=== PATIENT | female | born 1940 | race Caucasian/White ===

== ENCOUNTER 2022-05-22 17:43 | Inpatient (IN) | payer MEDICARE, OTHER ==
[~2022-05-22] VITALS: Ht 165.1 cm; Wt 84.8 kg
--- NOTE | 2022-05-22 18:29 | NUR ---
BIB [facility],SLIP/FALL IN HER KITCHEN,C/O RIGHT HIP PAIN. ESTABLISHED IV 20 G AT LEFT WRIST. BLOOD DRAWN AND SENT TO LAB.
[2022-05-22] MEDS ORDERED: ONDANSETRON 4 MG TAB.RAPDIS PO ONE (18:30)
--- NOTE | 2022-05-22 18:32 | NUR ---
X-RAY TECH AT BEDSIDE.
[2022-05-22] MEDS ORDERED: MORPHINE SULFATE INJ 4 MG/ML DISP.SYRIN ONE (18:36)
[2022-05-22] MEDS ORDERED: ONDANSETRON HCL/PF 4 MG/2 ML VIAL ONE (18:36)
[2022-05-22] MEDS: MORPHINE SULFATE INJ 2 MG/ML DISP.SYRIN IV ONE ×2 (19:00→19:25)
[2022-05-22] MEDS: ONDANSETRON HCL/PF - ER 4 MG/2 ML VIAL IV ONE ×2 (19:01→19:24)
--- NOTE | 2022-05-22 19:18 | NUR ---
[facility] [phone]
[2022-05-22 19:19] LABS: CALCIUM, SERUM 9.5 mg/dL (8.5-10.1); POTASSIUM 3.9 mmol/L (3.5-5.1)
--- NOTE | 2022-05-22 19:19 | NUR ---
COVID SWAB COLLECTED AND SENT TO LAB
--- NOTE | 2022-05-22 19:27 | NUR ---
RECEIVED REPORT FROM DELON GUERRERO. PATIENT CAME INITIALLY WITH CC OF SLIPPED AT HOME AND HAVE PAIN ON RIGHT HIP. PATIENT IS IN BED. AAOX4. NO PAIN AT THE MOMENT. PATIENT HAS IV ACCESS ON LEFT WRIST G20. WITH O2 INH AT 2LPM. ATTACHED TO MONITOR. VITALS CHECKED.
[2022-05-22 20:31] LABS: EOSINOPHILS % (AUTO) 0.3 % (0.0-6.0); HEMATOCRIT 39 % (33-45); HEMOGLOBIN 12.5 g/dL (11.5-14.8); LYMPHOCYTES # (AUTO) 1.9 K/uL (0.8-4.8); LYMPHOCYTES % (AUTO) 15.5 % (20.0-44.0); MEAN CORPUSCULAR HGB CONC 32 g/dl (31.0-36.0); MEAN CORPUSCULAR VOLUME 82 fL (82-100); MONOCYTES # (AUTO) 0.5 K/uL (0.1-1.30); MONOCYTES % (AUTO) 4.1 % (2.0-12.0); NEUTROPHILS # (AUTO) 9.6 K/uL (1.8-8.9); NEUTROPHILS % (AUTO) 80.1 % (43.0-81.0); PLATELET COUNT (AUTO) 281 K/uL (150-450); RED BLOOD CELL COUNT(AUTO) 4.68 MIL/uL (4.0-5.2)
--- NOTE | 2022-05-22 20:35 | NUR ---
PATIENT WANTS TO PASS URINE BUT UNABLE TO LIFT HIPS DUE TO PAIN ON RIGHT HIP. INSERTED IFC F16.
[2022-05-22] MEDS ORDERED: MORPHINE SULFATE INJ 2 MG/ML DISP.SYRIN IV PRN (21:30)
[2022-05-22] MEDS ORDERED: ONDANSETRON HCL/PF 4 MG/2 ML VIAL IVP PRN (21:30)
[2022-05-22] MEDS ORDERED: ACETAMINOPHEN 325 MG TABLET PO PRN (21:30)
--- NOTE | 2022-05-22 21:31 | NUR ---
CALLED [facility]. DELON SCHAFFER WILL CALL ME IN 10 MINS TO GET REPORT.
[2022-05-22 21:50] VITALS: BP 134/57
--- NOTE | 2022-05-22 21:57 | NUR ---
TRANSFERRED TO ROOM
--- NOTE | 2022-05-22 22:14 | NUR ---
ADMISSION NOTES PT ARRIVED VIA [facility] @ 2150. AOx4, YI SPEAKING AND PLEASANT. ON RA AND TOLERATING WELL. NO SOB NOTED. NO S/SX OF RESPIRATORY DISTRESS NOTED. IV ACCESS IN L WRIST #20G. IV IS INTACT, PATENT, AND FLUSHING WELL. SAFETY PRECAUTIONS IN PLACE: BED IN LOWEST, LOCKED POSITION, SIDERAILS UPx2, AND BRAKES ON. TABLE AND CALL LIGHT WITHIN REACH. SPOKE TO PATIENT AND GRANDDAUGHTER, ARTEM, WHO TRANSLATED. ANSWERED ALL QUESTIONS SATISFACTORILY. ALL NEEDS MET AT THIS TIME.
--- NOTE | 2022-05-22 22:17 | NUR ---
RN NOTES ARTEM, GRANDDAUGHTER, WANTS TO BE CONTACTED FIRST. CONTACT NUMBER [phone].
[2022-05-22] MEDS: IV NS 0.9% 1,000 ML IV PRN (22:42)
[2022-05-22] MEDS: ENOXAPARIN SODIUM 40 MG/0.4 ML DISP.SYRIN SQ SCH (22:46)
--- NOTE | 2022-05-22 23:18 | NUR ---
RN NOTES ADMINISTERED MORPHINE FOR PAIN PER MD ORDER. VS WNL.
[2022-05-23 06:00] LABS: BILIRUBIN,URINE NEGATIVE (NEGATIVE); COLOR,URINE YELLOW (YELLOW); LEUKOCYTE ESTERASE ,URINE NEGATIVE (NEGATIVE); NITRITE, URINE NEGATIVE (NEGATIVE); PROTEIN,URINE NEGATIVE (NEGATIVE); UGLUCOSE NEGATIVE (NEGATIVE); UROBILINOGEN,URINE 0.2 EU/dL (0.2)
[2022-05-23 06:22] LABS: BACTERIA,URINE None seen /HPF (None Seen); RBC,URINE TOO NUMEROUS TO COUN /HPF (0-2); SQUAMOUS EPITHELIAL CELL,UR None Seen /HPF (None Seen); WBC,URINE 0-2 /HPF (0-3)
--- NOTE | 2022-05-23 06:42 | NUR ---
RN CLOSING NOTES PT IN BED, ASLEEP, AWAKENS TO VERBAL STIMULI. AOx4, BELARUSIAN SPEAKING AND PLEASANT. ON NC 2LPM AND TOLERATING WELL. NO SOB NOTED. NO S/SX OF RESPIRATORY DISTRESS NOTED. IV ACCESS IN L WRIST #20G RUNNING NS @ 75 ML/HR. ALL ORDERS CARRIED OUT. ALL NEEDS MET. PT KEPT CLEAN AND DRY. SAFETY PRECAUTIONS IN PLACE: BED IN LOWEST, LOCKED POSITION, SIDERAILS UPx2, AND BRAKES ON. TABLE AND CALL LIGHT WITHIN REACH. UPDATED DAUGHTER AND ANSWERED ALL QUESTIONS SATISFACTORILY. WILL ENDORSE TO ONCOMING SHIFT FOR KASSI.
[2022-05-23 07:57] LABS: BASOPHILS % (AUTO) 0.1 % (0.0-2.0); EOSINOPHILS % (AUTO) 1.1 % (0.0-6.0); HEMATOCRIT 37 % (33-45); HEMOGLOBIN 12.2 g/dL (11.5-14.8); LYMPHOCYTES # (AUTO) 2.6 K/uL (0.8-4.8); MEAN CORPUSCULAR HGB CONC 33 g/dl (31.0-36.0); MEAN CORPUSCULAR VOLUME 83 fL (82-100); MONOCYTES # (AUTO) 0.6 K/uL (0.1-1.30); MONOCYTES % (AUTO) 5.3 % (2.0-12.0); NEUTROPHILS # (AUTO) 8.3 K/uL (1.8-8.9); NEUTROPHILS % (AUTO) 71.5 % (43.0-81.0); PLATELET COUNT (AUTO) 239 K/uL (150-450); RED BLOOD CELL COUNT(AUTO) 4.48 MIL/uL (4.0-5.2); WHITE BLOOD COUNT (AUTO) 11.6 K/uL (4.3-11.0)
[2022-05-23 08:14] LABS: CALCIUM, SERUM 9.2 mg/dL (8.5-10.1); CREATININE 0.9 mg/dL (0.6-1.3); MAGNESIUM 1.9 mg/dL (1.8-2.4); PHOSPHORUS 4.2 mg/dL (2.5-4.9); POTASSIUM 3.9 mmol/L (3.5-5.1)
--- NOTE | 2022-05-23 08:43 | NUR ---
RN MS NOTES PT SEEN AND EXAMINED BY DR. YI, PLAN FOR SURGERY DISCUSSED WITH PT AND SON RAJAN VIA PHONE, VERBALIZED UNDERSTANDING.
[2022-05-23] MEDS ORDERED: ESOM40CA PO (10:06)
[2022-05-23] MEDS ORDERED: ERGO500093 PO (10:06)
[2022-05-23] MEDS ORDERED: DONE5TAB34 PO (10:06)
[2022-05-23] MEDS ORDERED: METO25TA20 PO (10:06)
[2022-05-23] MEDS ORDERED: BENA20TA9 PO (10:06)
[2022-05-23] MEDS ORDERED: SIMV-46 PO (10:06)
[2022-05-23] MEDS ORDERED: BIMA2.5D5 EACHEYE (10:06)
[2022-05-23] MEDS ORDERED: EZET10TA32 PO (10:06)
[2022-05-23] MEDS ORDERED: MELO-107 PO (10:06)
[2022-05-23] MEDS ORDERED: ESCI10TA PO (10:06)
[2022-05-23] MEDS ORDERED: AMLO-212 PO (10:06)
[2022-05-23] MEDS ORDERED: NEPA3DRO EACHEYE (10:06)
[2022-05-23] MEDS ORDERED: CARB15DR EACHEYE (10:24)
[2022-05-23] MEDS ORDERED: ANESTHESIA TRAY IN PYXIS 1 EA TRAY MC ONE ×2 (12:42→15:01)
[2022-05-23] MEDS ORDERED: BUPIVACAINE 0.5 % PF 150 MG/30 ML VIAL ONE ×2 (12:42→15:02)
[2022-05-23] MEDS: IV NS 0.9% 1,000 ML IV PRN (13:01)
--- NOTE | 2022-05-23 16:56 | NUR ---
RN MS NOTES PT AWAKE, ALERT AND ORIENTED, NO COMPLAINT AT THIS TIME, NOT IN DISTRESS, PICKED UP BY O.R. STAFF FOR RIGHT HIP SURGERY BY DR. YI, LEFT VIA BED IN STABLE CONDITION, DAUGHTER INFORMED.
[2022-05-23] MEDS ORDERED: FENTANYL PF 100MCG/2ML AMPUL ONE (17:08)
[2022-05-23] MEDS ORDERED: ROCURONIUM BROMIDE 50 MG/5 ML ONE (17:08)
[2022-05-23] MEDS ORDERED: POLYMYXIN B SULFATE 500,000 UNITS ONE (17:11)
[2022-05-23] MEDS ORDERED: MORPHINE SULFATE INJ 2 MG/ML DISP.SYRIN IV PRN (18:43)
[2022-05-23] MEDS ORDERED: BISACODYL SUPP (10 MG) 10 MG/SUPP.RECT SUPP.RECT RC PRN (19:00)
[2022-05-23] MEDS ORDERED: SENNOSIDES 8.6 MG TABLET PO PRN (19:00)
[2022-05-23] MEDS ORDERED: DOCUSATE SODIUM 250 MG CAPSULE PO PRN (19:00)
--- NOTE | 2022-05-23 19:55 | NUR ---
RN OPENING NOTES PT ARRIVED FROM OR @ 1915 S/P IM RODDING WITH DR. YI. PT IN BED, AWAKE, AT THIS TIME AND TALKING WITH FAMILY AT BEDSIDE. AOx4, NIGERIAN SPEAKING. ON NC 4LPM AND TOLERATING WELL. NO SOB NOTED. NO S/SX OF RESPIRATORY DISTRESS NOTED. IV ACCESS IN L WRIST #20G RUNNING NS @ 75 ML/HR. SAFETY PRECAUTIONS IN PLACE: BED IN LOWEST, LOCKED POSITION, SIDERAILS UPx2, AND BRAKES ON. TABLE AND CALL LIGHT WITHIN REACH. ALL NEEDS MET AT THIS TIME.
[2022-05-23 20:00] VITALS: BP 119/55
[2022-05-23] MEDS: MORPHINE SULFATE INJ 4 MG/ML DISP.SYRIN IV PRN (20:02)
--- NOTE | 2022-05-23 20:02 | NUR ---
RN NOTES ADMINISTERED MORPHINE FOR PAIN PER MD ORDER. VS WNL.
[2022-05-23 20:16] LABS: HEMOGLOBIN 11.9 g/dL (11.5-14.8)
[2022-05-23] MEDS: ENOXAPARIN SODIUM 40 MG/0.4 ML DISP.SYRIN SQ SCH (20:44)
[2022-05-24] MEDS: ANCEF 1 GM/50 ML D5W IV SCH ×4 (01:28→09:19)
[2022-05-24] MEDS: IV NS 0.9% 1,000 ML IV PRN ×2 (06:03→20:03)
[2022-05-24 06:46] LABS: ALBUMIN 3.2 g/dL (3.4-5.0); BILIRUBIN,TOTAL 0.5 mg/dL (0.2-1.0); CALCIUM, SERUM 8.4 mg/dL (8.5-10.1); CREATININE 0.9 mg/dL (0.6-1.3); MAGNESIUM 1.8 mg/dL (1.8-2.4); PHOSPHORUS 4.3 mg/dL (2.5-4.9); POTASSIUM 4.3 mmol/L (3.5-5.1); TOTAL PROTEIN, SERUM 6.8 g/dL (6.4-8.2)
--- NOTE | 2022-05-24 06:51 | NUR ---
RN CLOSING NOTES PT IN BED, AWAKE. AOx4, FILIP[place] SPEAKING. ON NC 6LPM AND TOLERATING WELL. NO SOB NOTED. NO S/SX OF RESPIRATORY DISTRESS NOTED. IV ACCESS IN L WRIST #20G RUNNING NS @ 75 ML/HR. ALL ORDERS CARRIED OUT. ALL NEEDS MET. PT KEPT CLEAN AND DRY. SAFETY PRECAUTIONS IN PLACE: BED IN LOWEST, LOCKED POSITION, SIDERAILS UPx2, AND BRAKES ON. TABLE AND CALL LIGHT WITHIN REACH. WILL ENDORSE TO ONCOMING SHIFT FOR KASSI.
--- NOTE | 2022-05-24 07:11 | NUR ---
MS RN OPENING NOTES RECEIVED PATIENT AWAKE IN BED, A/Ox4, KINYARWANDA SPEAKING. ON 6L O2 VIA NC. NO S/S OF RESPIRATORY DISTRESS. IV ACCESS L WRIST #20G NS RUNNING 75 ML/HR. INTACT AND PATENT. PATIENT HAS FC DRAINING YELLOW URINE. PATIENT SHOWS NO S/S OF PAIN OR DISCOMFORT. SAFETY MEASURES IN PLACE: BED LOCKED AND IN LOWEST POSITION, SIDE RAILS UPx2, HOB ELEVATED, CALL LIGHT WITHIN REACH. WILL CONTINUE TO MONITOR.
[2022-05-24 07:43] LABS: BASOPHILS % (AUTO) 0.1 % (0.0-2.0); HEMATOCRIT 36 % (33-45); HEMOGLOBIN 11.8 g/dL (11.5-14.8); LYMPHOCYTES # (AUTO) 1.1 K/uL (0.8-4.8); LYMPHOCYTES % (AUTO) 8.3 % (20.0-44.0); MEAN CORPUSCULAR HGB CONC 33 g/dl (31.0-36.0); MEAN CORPUSCULAR VOLUME 83 fL (82-100); MONOCYTES # (AUTO) 0.6 K/uL (0.1-1.30); NEUTROPHILS # (AUTO) 11.1 K/uL (1.8-8.9); NEUTROPHILS % (AUTO) 86.6 % (43.0-81.0); PLATELET COUNT (AUTO) 255 K/uL (150-450); RED BLOOD CELL COUNT(AUTO) 4.39 MIL/uL (4.0-5.2); WHITE BLOOD COUNT (AUTO) 12.9 K/uL (4.3-11.0)
[2022-05-24 08:00] VITALS: BP 99/57
[2022-05-24] MEDS: HYDROCODONE/APAP 5/325MG TABLET PO PRN ×2 (09:24→20:03)
[2022-05-24] MEDS: MORPHINE SULFATE INJ 4 MG/ML DISP.SYRIN IV PRN (11:02)
--- NOTE | 2022-05-24 11:36 | NUR ---
RN NOTES PATIENT BEFORE PT WAS GIVEN PRN NARCO, WHEN CHANGING POSITION PATIENT WAS WINCING IN PAIN. AFTER PT, PATIENT WAS GIVEN PRN MORPHINE SHE WAS IN MORE PAIN AFTER PT.
--- NOTE | 2022-05-24 18:56 | NUR ---
MS RN CLOSING NOTES PATIENT AWAKE IN BED, A/Ox4, MALIAN SPEAKING. STABLE ON 5L O2 VIA NC. NO S/S OF RESPIRATORY DISTRESS. IV ACCESS L FA #20G NS RUNNING 75 ML/HR. INTACT AND PATENT. PATIENT HAS FC DRAINING YELLOW URINE. PATIENT SHOWS NO S/S OF PAIN OR DISCOMFORT. SAFETY MEASURES MAINTAINED: BED LOCKED AND IN LOWEST POSITION, SIDE RAILS UPx2, HOB ELEVATED, CALL LIGHT WITHIN REACH. WILL ENDORSE TO NEXT SHIFT ANY KASSI.
--- NOTE | 2022-05-24 19:15 | NUR ---
MS RN OPENING NOTES RECEIVED PATIENT AWAKE IN BED. A/Ox4, LATVIAN SPEAKING. STABLE ON 5L O2 VIA NC. NO S/S OF RESPIRATORY DISTRESS. C/O PAIN 5/10 AND REQUESTING PAIN MEDICATION. WILL ADMINISTER PRESCRIBED. IV ACCESS LFA #22G NS RUNNING 75 ML/HR. INTACT AND PATENT. PATIENT HAS FC DRAINING YELLOW URINE. SAFETY MEASURES MAINTAINED: BED LOCKED AND IN LOWEST POSITION, SIDE RAILS UPx2, HOB ELEVATED, CALL LIGHT WITHIN REACH. WILL CONTINUE TO MONITOR AND ASSIST.
[2022-05-24 20:00] VITALS: BP 152/74
[2022-05-24] MEDS: ENOXAPARIN SODIUM 40 MG/0.4 ML DISP.SYRIN SQ SCH (20:53)
[2022-05-24] MEDS ORDERED: LATANOPROST EYE DROP 0.005% 2.5 ML BOTTLE OP SCH (22:00)
[2022-05-25 06:37] LABS: BASOPHILS % (AUTO) 0.4 % (0.0-2.0); EOSINOPHILS % (AUTO) 2.6 % (0.0-6.0); HEMATOCRIT 34 % (33-45); HEMOGLOBIN 11.2 g/dL (11.5-14.8); LYMPHOCYTES # (AUTO) 1.9 K/uL (0.8-4.8); LYMPHOCYTES % (AUTO) 18.1 % (20.0-44.0); MEAN CORPUSCULAR HGB CONC 33 g/dl (31.0-36.0); MEAN CORPUSCULAR VOLUME 84 fL (82-100); MONOCYTES # (AUTO) 0.7 K/uL (0.1-1.30); MONOCYTES % (AUTO) 6.6 % (2.0-12.0); NEUTROPHILS # (AUTO) 7.8 K/uL (1.8-8.9); NEUTROPHILS % (AUTO) 72.3 % (43.0-81.0); PLATELET COUNT (AUTO) 225 K/uL (150-450); RED BLOOD CELL COUNT(AUTO) 4.09 MIL/uL (4.0-5.2); WHITE BLOOD COUNT (AUTO) 10.7 K/uL (4.3-11.0)
--- NOTE | 2022-05-25 06:48 | NUR ---
MS RN CLOSING NOTES PATIENT AWAKE IN BED. A/Ox4, CITIZEN OF [place] SPEAKING ONLY. STABLE ON 5L O2 VIA NC. NO S/S OF RESPIRATORY DISTRESS. NO C/O OF PAIN AT THIS TIME. IV LFA #22G PATENT AND INTACT, RUNNING 0.9% NS 75 ML/HR. PT SWITCHED TO BEDPAN. ALL CARE PROVIDED AND ADMINISTERED MEDICATIONS TOLERATED WELL. SAFETY MEASURES MAINTAINED: BED LOCKED AND IN LOWEST POSITION, SIDE RAILS UPx2, HOB ELEVATED, CALL LIGHT WITHIN REACH. WILL ENDORSE KASSI TO DAY SHIFT NURSE.
[2022-05-25 07:00] VITALS: BP 137/52
[2022-05-25 07:12] LABS: ALANINE AMINOTRANSFERASE 24 U/L (12-78); ALBUMIN 2.9 g/dL (3.4-5.0); ALKALINE PHOSPHATASE 45 U/L (46-116); ASPARTATE AMINOTRANSFERASE 19 U/L (15-37); BILIRUBIN,TOTAL 0.7 mg/dL (0.2-1.0); CALCIUM, SERUM 8.4 mg/dL (8.5-10.1); CARBON DIOXIDE 26 mmol/L (21-32); CHLORIDE 105 mmol/L (98-107); CREATININE 0.9 mg/dL (0.6-1.3); GLUCOSE 114 mg/dL (74-106); MAGNESIUM 1.8 mg/dL (1.8-2.4); PHOSPHORUS 2.1 mg/dL (2.5-4.9); POTASSIUM 4.1 mmol/L (3.5-5.1); SODIUM SERUM 137 mmol/L (136-145); TOTAL PROTEIN, SERUM 6.5 g/dL (6.4-8.2); UREA NITROGEN, BLOOD 19 mg/dL (7-18)
--- NOTE | 2022-05-25 07:25 | NUR ---
ms rn received on bed, awake, alert,oriented x 4, Icelandic speaking lady, s/p right hip surgery w/ dressing dry and intact, denies pain at this time, repositioned for comfort, will monitor patient.
--- NOTE | 2022-05-25 09:00 | NUR ---
ms blanco breakfast served,due meds given,tolerated well.
[2022-05-25] MEDS: HYDROCODONE/APAP 5/325MG TABLET PO PRN ×2 (11:03→20:08)
[2022-05-25] MEDS ORDERED: NEUTRA PHOS 1 POWD.PACKET PO ONE (12:00)
--- NOTE | 2022-05-25 12:00 | NUR ---
ms rn up with physical therapist,all needs attended.
[2022-05-25 16:00] VITALS: BP 120/64
--- NOTE | 2022-05-25 17:12 | NUR ---
ms rn pt will be discharge to [facility] at 8pm, daughter is aware,all needs attended.
--- NOTE | 2022-05-25 20:32 | NUR ---
DISCHARGED 2025 Right hip incision dressing intact, no bleeding. Limited movement right lower extremity due to pain. Medicated with [place], supported right hip with pillows during transfer and moving. LFA IV line removed. Report given to DELON Marina/Varinder NOE. Belongings checked send with the patient upon DC. Home medication also send with the patient. Mei, patient grand daughter assist with translation. Patient dc via gurney/ambulance to [facility].
== END 2022-05-25 20:25 | DRG 481 ==
LOC: ER 17:45 → MED 21:24
PROVIDERS: ADMIT Nurse Practitioner Acute Care
PROC: 0QS606Z Reposition Right Upper Femur with Intramedullary Internal Fixation Device, Open Approach (ICD-10-PCS; principal; 2022-05-23)
DX: S72.141A Displaced intertrochanteric fracture of right femur, initial encounter for closed fracture (principal); D68.59 Other primary thrombophilia; N17.9 Acute kidney failure, unspecified; D72.829 Elevated white blood cell count, unspecified; E11.9 Type 2 diabetes mellitus without complications; E66.01 Morbid (severe) obesity due to excess calories; Z68.31 Body mass index [BMI] 31.0-31.9, adult; G47.33 Obstructive sleep apnea (adult) (pediatric); I10 Essential (primary) hypertension; W01.0XXA Fall on same level from slipping, tripping and stumbling without subsequent striking against object, initial encounter; Y93.89 Activity, other specified; Y92.000 Kitchen of unspecified non-institutional (private) residence as the place of occurrence of the external cause
CPT/HCPCS: 36415; 71045-TC; 73501; 73502; 80048-TC; 80053-TC; 80061-TC; 81001; 83735-TC; 84100-TC; 85025-TC; 85027-TC; 85730-TC; 86850-TC; 87081-TC; 93307-TC; 93971-TC; 97112-TC; 97530-TC; A4217; A6209; A6253; C1713; C9803; G0378; J0330; J0690; J1100; J1650; J2270; J2370; J2405; J2704; J3010; J3490; J7030; J7060